=== PATIENT | male | born 1975 | race Caucasian/White ===

== ENCOUNTER → 2017-09-07 10:36 | Outpatient (CLI) | payer OTHER, SELFPAY ==
--- NOTE | 2017-09-07 10:44 | RAD_ITS ---
STUDY: X-RAY - RIGHT TIBIA AND FIBULA REASON FOR EXAM: Male, 41 years old. Complex regional pain syndrome of the leg. TECHNIQUE: 2 view(s) of the tibia and fibula were obtained. COMPARISON: Right ankle series March 30, 2015. FINDINGS: Alignment is normal. No fracture or dislocation. Multihole plate and screws stabilizes the distal tibia and fibula. Dense square distal tibial metaphysis suggestive of cement. Surgical hardware appears intact. The soft tissue structures are unremarkable. RAD/Tibia & Fibula 2 Views IMPRESSION: Postoperative changes of ORIF complex ankle fracture. Electronically Signed: Jasbir Conrad MD at 2:53 EST , Service support ,
--- NOTE | 2017-09-07 10:45 | RAD_ITS ---
STUDY: X-RAY - RIGHT ANKLE REASON FOR EXAM: Male, 41 years old. Complex regional pain syndrome of the right leg. TECHNIQUE: 3 view(s) of the ankle. COMPARISON: March 30, 2015. FINDINGS: Alignment of the distal tibia and fibula are normal. Postoperative changes of ORIF complex ankle fracture. An anterior multihole plate with screws stabilizes the distal tibia. Lateral multihole sideplate and screws stabilizes the distal fibula. Thickening of the medial cortex distal tibial metadiaphysis. High attenuation approximately square density distal tibial metaphysis suggestive of cement. Surgical hardware appears intact. Normal visualized talus and calcaneus. The visualized subtalar, talonavicular, calcaneocuboid and tarsal articulations are normal. The soft tissue structures are unremarkable. RAD/Ankle min 3 Views IMPRESSION: Postoperative changes of ORIF complex ankle fracture. Electronically Signed: Jasbir Conrad MD at 2:50 EST , Service support ,
== END ==
DX: G90.521 Complex regional pain syndrome I of right lower limb (principal); G25.81 Restless legs syndrome
CPT/HCPCS: 73590; 73610; 97110

== ENCOUNTER 2017-10-01 10:00 | Outpatient (RCR) | payer OTHER, SELFPAY ==
--- NOTE | 2017-06-01 11:30 | HP.PTREVAL_ITS ---
Santiago Cruz, It has been my pleasure to treat MACHELLE SALEH over the last 67 visits for RSD. Please see the progress note below for an update on the physical therapy plan of care! Subjective: Pt. reports I am a little more sore today. Pt. reports being HEP compliant. Pt. reports increased walking at home. He got approved for 18 more visits until end of . Objective/Function: Pt. has improved ankle ROM and strength. He has increased tolerance with mobility including walking on uneven surfaces. Pt. reports continued pain with walking and standing, reports pain at 4-6/10 consistently. He does reports overall improvement. He has decreased symptoms with use of fluidotherapy for desensitization and is progressing with nerve glides. He is to increase walking as tolerated and progress walking outside in community to improve tolerance and comfort with tasks as well as improve confidence with these activities. Plan Plan: Pt. to continue with current POC. Progress functional strengthening, ankle mobility, desensitization activities. Goals Goal 1:: Pt. to be I with HEP Goal Time Frame: 2-4 Weeks Goal Progress: Goal Met Goal 2:: Pt. to have increased RLE strength by 1/2 grade throughout to reduce stress to R ankle throughout general mobility. (RLE- ankle 4+/5 DF, PF 4+/5; knee- ext 4/5, flexion 4/5; hip- flexion 4+/5, abd 4/5, ext 4+/5) Goal Time Frame: 4-6 Weeks Goal Progress: Progressing Goal 3:: Pt. to have decreased ankle pain with all walking and mobility to 2-3/ 10 allowing for increased tolerance to work/recreational activities. (pt. reports having constant 4-5/10 pain with all mlbility and walking). Goal Time Frame: 4-6 Weeks Goal Progress: Progressing Goal 4:: Pt. to have decreased RLE pain at rest to 0-2/10 allowing for increased quality of life. (pt. reports 4-5/10 pain at all the time, increases with standing/walking). Goal Time Frame: 4-6 Weeks Goal Progress: Progressing Goal 5:: Pt. to tolerate standing upto 45minutes at once allowing for increased tolerance to work related activties. (pt. is able to stand for 20 while doing other activities). Goal Time Frame: 4-6 Weeks Goal Progress: Progressing Anticipated Interventions Patient/Client Instruction: Educate patient on: Condition, Plan of Care, Risk Factors, Benefits of Fitness Program For the Purpose of:: To foster healthy habits, To improve decision making, To facilitate caregiver knowledge, To improve self management, To prevent re-injury , To improve ability to perform tasks related to life management, To improve tolerance to ADL's Therapeutic Exercise to Include: Strength training, Power training, Endurance training, Balance training, Postural training, Flexibilty training, Gait and locomotor training, Passive ROM, Active ROM For the Purpose of:: To decrease pain, To increase ROM, To improve nutrient delivery to tissue, To increase oxygenation perfusion, To improve muscle performance and motor function, To improve ability to perform ADL's, To increase tolerance to activity/condition/position, To decrease level of supervision to perform tasks, To improve ability of physical actions for home/ community/work/leisure, To improve gait and locomotor functions, To improve health of tissue, To decrease soft tissue restriction IF ES: Yes Thermo therapy (hot pack): Yes Fluidotherapy: Yes For the Purpose of:: To decrease pain, To decrease swelling/inflammation, To increase ROM, To improve nutrient delivery to tissue Other: desensitization Please do not hesitate to contact me at [phone] by phone or Fax: if you have questions or concerns regarding this new plan of care! Sincerely, Jacob Servin
--- NOTE | 2017-08-03 16:23 | HP.PTREVAL ---
Santiago Cruz, It has been my pleasure to treat MACHELLE SALEH JR over the last 83 visits for RSD. Please see the progress note below for an update on the physical therapy plan of care! Subjective: Pt. reports I am doing okay. I still feel like if I get my ankle moving better the pain will improve. Pt. reports being HEP compliant. He is able to tolerate standing activities upto 20-25 minutes depending on activity. He reports having 6/10 pain in R ankle this date. Objective/Function: Pt. is able to stand/walk upto 20-25 minutes currently, but has increased intense pain hindering further standing. Walking- pt. was able to ambulate [id number]. and [id number]. this date without AD without LOB. Pt. reports increased pain as limiting factor with gait. Pt. continues to progress. Pt. has weaned away from cane, but cont. to use in community. STAIRS: Pt. is able to negotiate with reciprocal pattern with 1HR to ascend, 2R to descend. Increased pain with descending during R stance phase. ROM: Pt. has 7deg of DF on RLE with rigid end feel and increased pain as limiting factor. Pt. has improved stability/strength of RLE with gym exercises and functional strengthening (squating, sled push and pull). pt. continues to be limited with prolonged activities secondary to R ankle pain, but is progressing from last assessment. Plan Plan: Pt. received an extension of his C9 for 18 more visits from 08/06/17- 10/03/17. Focus on continued strengthening, functional strengthening, ankle mobility, ankle proprioception and pain control/desensitization. Goals Goal 1:: Pt. to be I with HEP Goal Time Frame: 2-4 Weeks Goal Progress: Goal Met Goal 2:: Pt. to have increased RLE strength by 1/2 grade throughout to reduce stress to R ankle throughout general mobility. (RLE- ankle 5-/5 DF, PF 5-/5; knee- ext 5-/5, flexion 4+/5; hip- flexion 4+/5, abd 4+/5, ext 5-/5) Goal Time Frame: 4-6 Weeks Goal Progress: Progressing Goal 3:: Pt. to have decreased ankle pain with all walking and mobility to 2-3/10 allowing for increased tolerance to work/recreational activities. (Pt. is progressing with goal, but slowly at best. He continues to be limited with prolonged standing activities secondary to increased pain.) Goal Time Frame: 4-6 Weeks Goal Progress: Progressing Goal 4:: Pt. to have decreased RLE pain at rest to 0-2/10 allowing for increased quality of life. (pt. reports 4-5/10 pain at all the time, increases with standing/walking. Pt. able to stand upto 20-25 minutes with household work). Goal Time Frame: 4-6 Weeks Goal Progress: Progressing Goal 5:: Pt. to tolerate standing upto 45minutes at once allowing for increased tolerance to work related activties. (pt. is able to stand for 20-25 while doing other activities, pain is limiting factor with ADLs and house hold work). Goal Time Frame: 4-6 Weeks Goal Progress: Progressing Anticipated Interventions Patient/Client Instruction: Educate patient on: Condition, Plan of Care, Risk Factors, Benefits of Fitness Program For the Purpose of:: To foster healthy habits, To improve decision making, To facilitate caregiver knowledge, To improve self management, To prevent re-injury, To improve ability to perform tasks related to life management, To improve tolerance to ADL's Therapeutic Exercise to Include: Strength training, Power training, Endurance training, Balance training, Postural training, Flexibilty training, Gait and locomotor training, Passive ROM, Active ROM For the Purpose of:: To decrease pain, To increase ROM, To improve nutrient delivery to tissue, To increase oxygenation perfusion, To improve muscle performance and motor function, To improve ability to perform ADL's, To increase tolerance to activity/condition/position, To decrease level of supervision to perform tasks, To improve ability of physical actions for home/community/work/leisure, To improve gait and locomotor functions, To improve health of tissue, To decrease soft tissue restriction IF ES: Yes Thermo therapy (hot pack): Yes Fluidotherapy: Yes For the Purpose of:: To decrease pain, To decrease swelling/inflammation, To increase ROM, To improve nutrient delivery to tissue Other: desensitization Please do not hesitate to contact me at [phone] by phone or if you have questions or concerns regarding this new plan of care! Sincerely, Jacob Servin
--- NOTE | 2017-10-05 07:59 | HP.PTDCSUM_ITS ---
HP - PT D/C Summary It has been my pleasure to treat MACHELLE SALEH JR under orders from DAVID Ghosh, for the diagnosis of RSD for a total of 97 visit(s). Discharge Date: Please see the following information for a summary of their discharge status. - Subjective Subjective: Pt. reports I am doing a little better. Pt. reports he believes that he is getting a new C9 for additional PT. Pt. is also getting another injection. pt. reports being HEP compliant. Pt. reports being 75% with ability to get around, but 25% in regards to his pain. - Pain RLE Pain Intensity (Out of 10): 4 - Overall Improvement % Improvement: 25 - Objective Objective/Function: Pt. has progressed with his functional mobility, but continues to have difficulty with his pain especially with WBing for an extended period of time. MMT-RLE- ankle 5/5 DF, PF 5/5; knee- ext 5-/5, flexion 5-/5; hip- flexion 5-/5, abd 5-/5, ext 5-/5. Pt. is walking upto 4000ft. in clinic, pain as limiting factor, no AD needed. Pt. is negotiating stairs with mild increase in symptosm, but able to functonally complete. Pt. continues to do desensitization activities with R foot. Overall functionally improving, but pain control is slowly improving at best. - Goals Goal 1:: Pt. to be I with HEP Goal Progress: Goal Met Goal 2:: Pt. to have increased RLE strength by 1/2 grade throughout to reduce stress to R ankle throughout general mobility. (RLE- ankle 5/5 DF, PF 5/5; knee - ext 5-/5, flexion 5-/5; hip- flexion 5-/5, abd 5-/5, ext 5-/5) Goal Progress: Goal Met Goal 3:: Pt. to have decreased ankle pain with all walking and mobility to 2-3/ 10 allowing for increased tolerance to work/recreational activities. (Pt. continues to report having 4-5/10 pain in his R ankle with all walking. Pt. is able to walk upto 4000ft. in clinic this date with improved tempo and no AD, he does report increased pain as limiting factor. No LOB noted.) Goal Progress: Progressing Goal 4:: Pt. to have decreased RLE pain at rest to 0-2/10 allowing for increased quality of life. (pt. reports 4-5/10 pain at all the time, his pain worsens with standing and walking. Pt. is progressing a walking routine that has helpd with tolernace to greater distances, but not to reduction of symptoms) . Goal Progress: Progressing Goal 5:: Pt. to tolerate standing upto 45minutes at once allowing for increased tolerance to work related activties. (pt. is standing 30-35' in PT with occassional rest periods. Pt. reports needing rest periods secondary to increased pain in R foot.). Goal Progress: Progressing - Plan Plan: This chart will be DC, but if pt. gets new C9 I will reopen a new chart. - D/C Information If there are questions or concerns regarding this patient's physical therapy, please feel free to call me at [phone]. Thank you for the referral of this patient. Sincerely, Jacob Servin
== END 2017-10-01 19:00 | disposition home or self-care (01) ==
LOC: PT 10:00
PROVIDERS: Visit Provider Nurse Practitioner Family
DX: G25.81 Restless legs syndrome (principal); G90.50 Complex regional pain syndrome I, unspecified
CPT/HCPCS: 97022 ×3; 97110 ×10; 97530 ×4; 97140

== ENCOUNTER → 2017-10-16 10:56 | Outpatient (CLI) | payer OTHER, SELFPAY ==
--- NOTE | 2017-10-16 11:01 | RAD_ITS ---
STUDY: X-RAY - LUMBAR SPINE REASON FOR EXAM: Male, 41 years old. Low back pain TECHNIQUE: 3 view(s) of the lumbar spine were obtained. COMPARISON: None FINDINGS: Normal lumbar lordosis. There is no substantial scoliosis. There is a normal alignment of the vertebrae. Normal vertebral body height without fracture, osteolytic or blastic bone lesion. Mild disc narrowing at L4-5 and L5-S1. Normal posterior elements. The soft tissue structures are unremarkable. RAD/Lumbar Spine 2 or 3 Views IMPRESSION: Normal alignment of the lumbar spine without fracture, osteolytic or blastic bone lesion. Mild degenerative disc narrowing at L4-5 and L5-S1. Electronically Signed: Jane David MD at 23:29 EDT , Service support ,
== END ==
DX: S39.012A Strain of muscle, fascia and tendon of lower back, initial encounter (principal); M48.07 Spinal stenosis, lumbosacral region
CPT/HCPCS: 72100

== ENCOUNTER 2018-01-08 10:00 | Outpatient (RCR) | payer OTHER, SELFPAY ==
--- NOTE | 2017-12-30 10:18 | HP.PTREVAL_ITS ---
Bernarda Bertrand, REBEKAH-Rusty, It has been my pleasure to treat MACHELLE SALEH JR over the last 21 visits for RSD. Please see the progress note below for an update on the physical therapy plan of care! Subjective: Pt. reports I am really flared up today. Pt. reports not being able to take his pain medication for ~2 weeks now after failing a drug test. He reports taking more medication to keep his pain at bay. He is now looking into getting a pain pump. He is to meet with that physician in a few weeks. He is still concerned about is R ankle as he believes that there is a screw that is causing him trouble or something. Pt. reports 75% improvement in function, but minimal improvement in his pain. Objective/Function: ROM- pt. has normal ROM of bilateral Hips, Tight HS bilaterally R worse than L. Pt. has decreased lumbar flexion- min loss increase NW, and decreased lumbar ext min loss increase NW in lumbar spine. R ankle DF 8deg increase in symptoms. PF 38deg increase in symptoms. MMT- LLE- 5/5 throughout wihtout increase in symptoms. RLE- ankle- DF 5/5, PF 5/5; knee- ext 4 +/5, flexion 4+/5; hip- flexion 4+/5, abd 4+/5, ext 5/5. Core strength- fair. GAIT: Pt. ambuated 2500ft. with out AD with normal pattern. He does have slight lateral postural sway and occassional deviation from path (slight) with reports of increased R ankle/foot pain as cause. Pt. reports increased pain as limiting factor. Pt. has no marked edema or skin color changes this date. Pt. continues to be tender throughout R ankle/foot to palpation. SLS- 21 on R side increase NW in ankle/foot pain. Plan Plan: Pt. reports increased difficulty with ankle stabilty/proprioception. Pt. has improved strength throughout RLE and core. Pt. continues to have increased pain throughout RLE, that worsens in stance and worse still in SLS. Pt. has improved gait tolerance, btu cotninues to be limited to ~2500ft. without AD secondary to increased pain. I talked to him about continuing with nerve glides , ROM, desensitization techniques and graded exercises to improve tolerance. Pt. is in agreement. Start with SLS positioning to tolerance progress as able, graded functional exericses as tolerated, improve gait tolerance and standing tolerance with PT. Goals Goal 1:: Pt. to be I with HEP. Goal Time Frame: 4-6 Weeks Goal Progress: Progressing Goal 2:: Pt. to ambulate 1 mile with mild increase in symptoms (1-2 points above baseline pain) allowing for increased tolerance to recreational activities. Goal Time Frame: 4-6 Weeks Goal Progress: Progressing Goal 3:: Pt. to have 5/5 RLE strength throughout. Goal Time Frame: 4-6 Weeks Goal Progress: Progressing Goal 4:: Pt. to have 0-3/10 pain at rest allowing for improved quality of life. Goal Time Frame: 4-6 Weeks Goal Progress: Progressing Goal 5:: Pt. to be able to stand during activities for > 1 hour allowing increased tolerance with all ADLs and getting around stores. Goal Time Frame: 4-6 Weeks Goal 6:: Pt. to be able to stand on his RLE for >30sec with increased control in SLS positioning. Goal Time Frame: 4-6 Weeks Goal Progress: Progressing Anticipated Interventions Patient/Client Instruction: Educate patient on: Condition, Plan of Care, Risk Factors, Benefits of Fitness Program For the Purpose of:: To foster healthy habits, To improve decision making, To facilitate caregiver knowledge, To improve self management, To prevent re-injury , To improve ability to perform tasks related to life management, To improve tolerance to ADL's Therapeutic Exercise to Include: Strength training, Power training, Endurance training, Balance training, Body mechanics, Postural training, Flexibilty training, Gait and locomotor training, Passive ROM, Active ROM, Dynamic Lumbar Stabilization For the Purpose of:: To decrease pain, To increase ROM, To improve nutrient delivery to tissue, To increase oxygenation perfusion, To improve muscle performance and motor function, To improve ability to perform ADL's, To increase tolerance to activity/condition/position, To improve gait and locomotor functions, To improve health of tissue, To decrease soft tissue restriction, To increase flexibility/ROM, To improve endurance, To improve balance Fluidotherapy: Yes For the Purpose of:: To decrease pain, To decrease swelling/inflammation Please do not hesitate to contact me at [phone] by phone or Fax: if you have questions or concerns regarding this new plan of care! Sincerely, Jacob Servin
== END 2018-01-08 17:00 | disposition home or self-care (01) ==
LOC: PT 10:00
PROVIDERS: Visit Provider Nurse Practitioner Family
DX: G90.521 Complex regional pain syndrome I of right lower limb (principal); S89.391D Other physeal fracture of lower end of right fibula, subsequent encounter for fracture with routine healing; S39.012A Strain of muscle, fascia and tendon of lower back, initial encounter; M48.07 Spinal stenosis, lumbosacral region
CPT/HCPCS: 72100; 97022; 97110; 97140; 97530

== ENCOUNTER 2018-07-19 10:00 | Outpatient (RCR) | payer OTHER, SELFPAY ==
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
--- NOTE | 2018-07-21 13:59 | HP.PTDCSUM ---
HP - PT D/C Summary It has been my pleasure to treat MACHELLE SALEH Jr. under orders from DAVID Ghosh, for the diagnosis of R ankle CRPS for a total of 18 visit(s). Discharge Date: 07/19/18 Please see the following information for a summary of their discharge status. - Subjective Subjective: Pt. reports he continues to have increased pain in BLEs, R worse than L. Pt. is now experiencing B arm pain. He believes this is RSD as well. Pt. reports having increased soreness after last visit. Pt. reports having 8/10 pain pre treatment. Pt. is to follow up with physician at the end of the month. - Pain R foot Pain Intensity (Out of 10): 8 L foot Pain Intensity (Out of 10): 5 - Overall Improvement % Improvement: 50 - Objective Objective/Function: ROM: Pt. continues to have increased stiffness into R ankle DF (8deg). Pt. has tightness throughout, but limited greatest into DF. MMT: Pt. has 5/5 strength throughout bilateral LES, except 4+/5 hip abd bilat, and 4+/5 hip ext bilat. Gait: pt. is able to ambulate without AD without LOB. Pt. is able to ambulat ~3800ft., but has increased pain throughout. STAIRS: Pt. is able to ascend with increased stability, but has increased pain and early heel off with RLE with descending. Pt. is able to complete with recipriocal pattern and use of 1 HR. Pt. continues to have higher levels of pain limiting most of his mobility. Pt. has decent strength and functional mobility, but his tolerance to these activities are limiting his consistency in doing them. Pt. contnues to have increased pain post PT then limits his mobility/functional activities for the next few days. I talked with him about this not being a desired plan as we are loosing activity tolerance for those days we are moving less. A better option would to have reduce stress during exercises to increase better tolerance after, pt. agrees. I talked to patient again about increasing a walking routine to increase cardiovascular fitness as well as tolerance to gait. Pt. agrees to trialing. Pt is independent with HEP for BLE strengthening, core strengthening and endurance exercises. Pt. to follow up with physician at this point in time. - Goals Goal 1:: Pt. to be I with HEP. Goal Progress: Goal Met Goal 2:: Pt. to ambulate greater than 5000ft. with out AD with 0-5/10 pain in RLE allowing for increased tolerance with all community mobility and recreational tolerance. Goal Progress: Progressing Goal 3:: Pt. to negotiate one flight of stairs with 1 HR with reciprocal pattern without increase in symptoms. Goal Progress: Progressing Goal 4:: Pt. to sleep throughout the night with 0-3/10 pain in R LE allowing for increased quality of life. Goal Progress: Not Progressing Goal 5:: Pt. to complete all ADLs and household work with 0-3/10 pain in RLE. Goal Progress: Not Progressing - Plan Plan: Pt. will be DC from PT at this point in time. - D/C Information Discharge Comments: Pt. was treated in PT for his RLE RSD. Pt. was treated with graded exercises, walking progression, desensitization exercises. Pt. has been given HEP to progress above limitations. He greatest limitation at this point in time is his high level of pain. This limits any prolonged activities greater than ~15 minutes without rest periods. Pt. has been educated on graded exercises and slow progression of ambulation routine to increase tolerance to mobility. Pt. will be DC to HEP and physician at this point in time. If there are questions or concerns regarding this patient's physical therapy, please feel free to call me at [phone]. Thank you for the referral of this patient. Sincerely, Jacob Servin DPT
== END 2018-07-19 19:00 | disposition home or self-care (01) ==
LOC: PT 10:00
PROVIDERS: Visit Provider Nurse Practitioner Family
DX: S89.391D Other physeal fracture of lower end of right fibula, subsequent encounter for fracture with routine healing (principal)
CPT/HCPCS: 97022; 97110; 97162; 97530

== ENCOUNTER 2019-05-13 10:30 | Outpatient (RCR) | payer OTHER, SELFPAY ==
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
--- NOTE | 2019-03-10 10:38 | HP.PTREVAL_ITS ---
ADRI AMAYA, It has been my pleasure to treat MACHELLE SALEH Jr. 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 Please see the progress note below for an update on the physical therapy plan of care! Subjective: Received order to cont 16 visits end date 04/12/19. 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 Dr Fei Paris ..pain DR change pain MEDS. Pain same in feet and hands -02/12. Symptoms affects QOL and function with walking. Patient started taking ambien. Water ex's help with pain and stiffness. Objective/Function: POSTURE: mild foward posture. GAIT: ambulates with antalgic with cane 2 point gait. SKIN: mild errythmia redeness right > left. SENS ITIVTY: too touch lower leg. MMT: quads/hams 4/5 hip flexion 4-/5 bilateral. ankle dorsiflexion 4-/5,inversion/eversion 3+/5,G-S left. right 4/5 except 4- /5. AROM: 5 DEGREES FROM 0 degrees,INVERSION 15 degrees,inversion 0 degrees right. PROPRIOCEPTION: POOR RIGHT Plan Plan: CONT 2XWK FOR 6WKS IN AQUATIC PT FOR ROM/STRENGTH LE -ANKLE,FLEXABLITY ,ENDURANCE ,PROPRIOCEPTION Goals Goal 1:: Independant with HEP. Goal Time Frame: 4-6 Weeks Goal 2:: Patient decrease symptoms bilateral legs lower by 30% for function. Goal Time Frame: 4-6 Weeks Goal 3:: Patient to improve gait by 40 % with less antalgic gait at community distances. Goal Time Frame: 4-6 Weeks Goal 4:: Patient to decrease sensativity by 40% or greater for moblity. Goal Time Frame: 4-6 Weeks Goal 5:: Patient to improve LFES score 5 points score to to improve QOL. Goal Time Frame: 4-6 Weeks Anticipated Interventions Patient/Client Instruction: Educate patient on: Condition For the Purpose of:: To decrease pain, To increase ROM, To improve muscle perfor isaac and motor function, To improve performance and independence with ADL's, To improve ability of physical actions for home/community/work/leisure, To improve gait and locomotor functions, To decrease soft tissue restriction, To increase flexibility/ROM, To improve endurance, To improve balance, To improve ability to perform tasks related to life management Therapeutic Exercise to Include: Strength training, Endurance training, Balance training, Flexibilty training, Gait and locomotor training, In an aquatic setting, Passive ROM, Active ROM Comment: ANKLE /HIP/KNEE For the Purpose of:: To decrease pain, To decrease swelling/inflammation, To increase ROM, To improve muscle performance and motor function, To improve ability to perform ADL's, To increase tolerance to activity/condition/position, To improve performance and independence with ADL's, To improve ability of physical actions for home/community/work/leisure, To improve gait and locomotor functions, To improve health of tissue, To decrease soft tissue restriction, To increase flexibility/ROM, To improve endurance, To improve balance, To improve safety with gait, To improve ability to perform tasks related to life management Please do not hesitate to contact me at [phone] by phone or if you have questions or concerns regarding this new plan of care! Sincerely, Santiago White, PT, Cert MDT, OCS
== END 2019-05-13 17:00 | disposition home or self-care (01) ==
LOC: PT 10:30
DX: G90.523 Complex regional pain syndrome I of lower limb, bilateral (principal)
CPT/HCPCS: 97113; 97162; 97530